=== PATIENT | male | born 1955 | race Caucasian/White ===

== ENCOUNTER 2017-07-24 19:05 | Emergency (ER) | payer OTHER ==
[~2017-07-24] VITALS: Ht 180.3 cm; Wt 96.2 kg
[~2017-07-24 19:05] MED LIST: NAPR500T4 PO; TRAM-42 PO
[2017-07-24] MEDS ORDERED: LACTATED RINGERS 1,000 ML IV ONE (19:28)
[2017-07-24] MEDS ORDERED: ACETAMINOPHEN 500 MG TAB (TYLENOL) PO ONE (19:30)
[2017-07-24] MEDS ORDERED: ONDANSETRON 4 MG/2 ML (SDV) Z0FRAN IVP ONE (19:30)
--- NOTE | 2017-07-24 19:36 | ED Fever ---
History of Present Illness General Chief Complaint: General Problems/Pain Stated Complaint: VOMITING, FLU, BACK PAIN Source: patient, spouse Exam Limitations: no limitations History of Present Illness Date Seen by Provider: Jul 24, 2017 Time Seen by Provider: 19:23 Initial Comments Patient presents to ER by private conveyance with a chief complaint of for the past 5 days he has experienced progressively worsening malaise, fevers subjectively, sweats, chills, body aches and pain in his low back as well as nausea and vomiting since yesterday. He's had no diarrhea. He's been laying home in bed sleeping and not drinking very much fluids and feels that he is dehydrated. He went to a different ER where he was seen and he says a stick stuck up his nose for 5 minutes and then they pulled out through the trash and told them he had a sinus infection and put him on amoxicillin which she started yesterday at noon. He says he is continuing to feel worse and having pain in his knees and his low back. He denies dysuria. He's had his appendix out twice apparently. He is not having any specific abdominal pain, chest pain, shortness of breath, cough, nasal congestion or pain, ear discharge. He says his throat is sore. Allergies and Home Medications Allergies Coded Allergies: No Known Drug Allergies (Unverified , 04/09/16) Home Medications Naproxen 500 Mg Tablet, 500 MG PO BID, #20 Prescribed by: HENRIK PATE on 04/09/162055 Tramadol HCl 50 Mg Tablet, 50 MG PO Q4H, #20 Prescribed by: HENRIK PATE on 04/09/162055 Constitutional: chills, diaphoresis, fever, malaise EENTM: No ear discharge, No hearing loss, No ear pain, No eye pain Respiratory: No cough, No phlegm, No short of breath, No wheezing Cardiovascular: No chest pain, No edema, No Hx of Intervention, No syncope, No vascular heart diseas Gastrointestinal: No abdominal pain, No constipation, No diarrhea, No heartburn , loss of appetite (poor fluid intake.), nausea, vomiting Genitourinary: decreased output, No discharge, No dysuria, No hematuria Musculoskeletal: back pain (lumbar), joint pain (bilateral knees ache) Skin: No pruritus, No rash, other (scraped his left elbow about a week ago) Psychiatric/Neurological: Denies Headache, Denies Numbness Past Zbicclp-Ifddgs-Fvulwt Hx Patient Social History Alcohol Use: Denies Use Recreational Drug Use: No Smoking Status: Never a Smoker Type Used: Smokeless Tobacco Recent Foreign Travel: No Contact w/Someone Who Travel: No Recent Hopitalizations: No Physical Abuse: No Sexual Abuse: No Mistreated: No Fear: No Immunizations Up To Date Tetanus Booster (TDap): Unknown Seasonal Allergies Seasonal Allergies: No Surgeries History of Surgeries: Yes (07/24-APPY (TWICE, PER )) Surgeries: Appendectomy, Tonsillectomy Respiratory History of Respiratory Disorde: No Cardiovascular History of Cardiac Disorders: No Neurological History of Neurological Disord: No Reproductive System Hx Reproductive Disorders: No Gastrointestinal History of Gastrointestinal Di: No Musculoskeletal History of Musculoskeletal Dis: No Endocrine History of Endocrine Disorders: No Cancer History of Cancer: No Psychosocial History of Psychiatric Problem: No Suicide Risk Score: 0 Integumentary History of Skin or Integumenta: No Blood Transfusions History of Blood Disorders: No Physical Exam Vital Signs Vital Signs - First Documented 07/24/17 19:19 Temp 98.3 Pulse 86 Resp 20 B/P (MAP) 138/102 (114) Pulse Ox 96 O2 Delivery Room Air Capillary Refill : General Appearance: WD/WN, mild distress Eyes: Bilateral Eye Normal Inspection, Bilateral Eye PERRL, Bilateral Eye EOMI HEENT: PERRL/EOMI, TMs normal, No scleral icterus (R), No photophobia, pharyngeal erythema, No tonsillar exudate Neck: non-tender, supple, normal inspection Respiratory: chest non-tender, lungs clear, no respiratory distress, no accessory muscle use, decreased breath sounds Cardiovascular: normal peripheral pulses, regular rate, rhythm, no edema Gastrointestinal: normal bowel sounds, non tender, soft Extremities: normal range of motion, normal inspection, no calf tenderness, normal capillary refill Neurologic/Psychiatric: alert, normal mood/affect, oriented x 3 Skin: normal color, warm/dry, other (old well-healed abrasion on his lateral left elbow without any erythema, induration or rash.) Progress/Results/Core Measures Suspected Sepsis SIRS Temperature: Pulse: Respiratory Rate: Laboratory Tests 07/24/17 19:55: White Blood Count 17.2H Blood Pressure / Mean: Laboratory Tests 07/24/17 19:55: Creatinine 0.86, Platelet Count 273, Total Bilirubin 0.7 Results/Orders Lab Results Laboratory Tests Test 07/24/17 19:36 07/24/17 19:55 Range/Units Urine Color YELLOW Urine Clarity CLEAR Urine pH 6 5-9 Urine Specific Parrott 1.015 L 1.016-1.022 Urine Protein NEGATIVE NEGATIVE Urine Glucose (UA) NEGATIVE NEGATIVE Urine Ketones NEGATIVE NEGATIVE Urine Nitrite NEGATIVE NEGATIVE Urine Bilirubin NEGATIVE NEGATIVE Urine Urobilinogen NORMAL NORMAL MG/DL Urine Leukocyte Esterase 1+ H NEGATIVE Urine RBC (Auto) NEGATIVE NEGATIVE Urine RBC NONE /HPF Urine WBC 0-2 /HPF Urine Crystals NONE /LPF Urine Bacteria NONE /HPF Urine Casts NONE /LPF Urine Mucus SMALL H /LPF Urine Culture Indicated NO Group A Streptococcus Screen NEGATIVE NEGATIVE White Blood Count 17.2 H 4.3-11.0 10^3/uL Red Blood Count 5.44 4.35-5.85 10^6/uL Hemoglobin 16.5 13.3-17.7 G/DL Hematocrit 46 40-54 % Mean Corpuscular Volume 85 80-99 FL Mean Corpuscular Hemoglobin 30 25-34 PG Mean Corpuscular Hemoglobin Concent 36 32-36 G/DL Red Cell Distribution Width 12.2 10.0-14.5 % Platelet Count 273 130-400 10^3/uL Mean Platelet Volume 9.5 7.4-10.4 FL Neutrophils (%) (Auto) 86 H 42-75 % Lymphocytes (%) (Auto) 4 L 12-44 % Monocytes (%) (Auto) 10 0-12 % Eosinophils (%) (Auto) 1 0-10 % Basophils (%) (Auto) 0 0-10 % Neutrophils # (Auto) 14.7 H 1.8-7.8 X 10^3 Lymphocytes # (Auto) 0.6 L 1.0-4.0 X 10^3 Monocytes # (Auto) 1.7 H 0.0-1.0 X 10^3 Eosinophils # (Auto) 0.2 0.0-0.3 10^3/uL Basophils # (Auto) 0.0 0.0-0.1 10^3/uL Neutrophils % (Manual) 64 % Lymphocytes % (Manual) 10 % Monocytes % (Manual) 4 % Eosinophils % (Manual) 1 % Basophils % (Manual) 0 % Band Neutrophils 21 % Blood Morphology Comment NORMAL Sodium Level 136 135-145 MMOL/L Potassium Level 4.0 3.6-5.0 MMOL/L Chloride Level 102 98-107 MMOL/L Carbon Dioxide Level 23 21-32 MMOL/L Anion Gap 11 5-14 MMOL/L Blood Urea Nitrogen 14 7-18 MG/DL Creatinine 0.86 0.60-1.30 MG/DL Estimat Glomerular Filtration Rate > 60 BUN/Creatinine Ratio 16 Glucose Level 139 H 70-105 MG/DL Calcium Level 8.7 8.5-10.1 MG/DL Magnesium Level 1.7 L 1.8-2.4 MG/DL Total Bilirubin 0.7 0.1-1.0 MG/DL Aspartate Amino Transf (AST/SGOT) 24 5-34 U/L Alanine Aminotransferase (ALT/SGPT) 33 0-55 U/L Alkaline Phosphatase 71 40-136 U/L Total Protein 6.6 6.4-8.2 GM/DL Albumin 3.9 3.2-4.5 GM/DL Micro Results Microbiology 07/24/17 Influenza Types A,B Antigen (RAMIRO) - Final, Complete My Orders Orders - BRYANNA BURNHAM Influenza A And B Antigens (07/24/17 19:17) Cbc With Automated Diff (07/24/17 19:28) Comprehensive Metabolic Panel (07/24/17 19:28) Magnesium (07/24/17 19:28) Rapid Strep A Screen (07/24/17 19:28) Ua Culture If Indicated (07/24/17 19:28) Chest Pa/Lat (2 View) (07/24/17 19:28) Saline Lock/Iv-Start (07/24/17 19:28) Lactated Ringers (Lr 1000 Ml Iv Solution (07/24/17 19:28) Ondansetron Injection (Zofran Injectio (07/24/17 19:30) Acetaminophen Tablet (Tylenol Tablet) (07/24/17 19:30) Manual Differential (07/24/17 19:55) Ct Abdomen/Pelvis W (07/24/17 21:00) Iohexol Injection (Omnipaque 350 Mg/Ml 1 (07/24/17 21:15) Ns (Ivpb) (Sodium Chloride 0.9% Ivpb Bag (07/24/17 21:15) Medications Given in ED Current Medications Medications Dose Ordered Sig/Kelly Route Start Time Stop Time Status Last Admin Dose Admin Acetaminophen 1,000 mg ONCE ONCE PO 07/24/17 19:30 07/24/17 19:31 DC 07/24/17 19:53 1,000 MG Iohexol 100 ml ONCE ONCE IV 07/24/17 21:15 07/24/17 21:16 UNV 07/24/17 21:26 100 ML Lactated Ringer's 1,000 ml @ 0 mls/hr Q0M ONCE IV 07/24/17 19:28 07/24/17 19:30 DC 07/24/17 19:58 1,000 MLS/HR Ondansetron HCl 4 mg ONCE ONCE IVP 07/24/17 19:30 07/24/17 19:31 DC 07/24/17 19:58 4 MG Sodium Chloride 100 ml ONCE ONCE IV 07/24/17 21:15 07/24/17 21:16 UNV 07/24/17 21:26 100 ML Vital Signs/I&O Vital Sign - Last 12Hours 07/24/17 19:19 Temp 98.3 Pulse 86 Resp 20 B/P (MAP) 138/102 (114) Pulse Ox 96 O2 Delivery Room Air Capillary Refill : Progress Note : Time: 19:36 Progress Note Patient's having myalgias and fever and using naproxen which has masses fever presently. Seems like he has a viral illness such as influenza but because of his age were going to check urine and blood. I don't see anything overtly explain his symptoms we may consider imaging his lower abdomen given his severity of back pain. We will give him some Zofran, Tylenol and IV fluids help rehydrate him. Diagnostic Imaging Diagonstic Imaging: Xray Plain Films/CT/US/NM/MRI: chest (2v) Comments NAME: HO VIZCARRA [facility] REC#: [id number] PHYSICIAN: BRYANNA BURNHAM MD CC: ANKUR GARCIA DO; BRYANNA BURNHAM Page 1 of 1 RADIOLOGY REPORT VIA [facility], [facility]. [place], [place] CC: ANKUR GARCIA DO; BRYANNA BURNHAM Page 1 of 1 RADIOLOGY REPORT NAME: HO VIZCARRA [facility] REC#: [id number] PT STATUS: REG ER : 1955 PHYSICIAN: BRYANNA BURNHAM MD ADMIT DATE: 07/24/17/ER Signed Date of Exam: 07/24/17 CHEST PA/LAT (2 VIEW) INDICATION: Nausea, vomiting, cough and back pain x6 days.. TECHNIQUE: Two view chest 8:29 PM CORRELATION STUDY: None FINDINGS: The heart size, mediastinal configuration and pulmonary vasculature are within normal limits. The lungs are clear with no consolidating infiltrate. There is no significant pleural effusion or pneumothorax. Visualized osseous structures are unremarkable. IMPRESSION: 1. No radiographic evidence for acute abnormality of the chest. Dictated by: Dictated on workstation # [id number] Dict: 07/24/172033 Trans: 07/24/172034 Interpreted by: ANKUR GARCIA DO Electronically signed by: ANKUR GARCIA DO 07/24/172034 Reviewed: Reviewed by Mi Diagonstic Imaging: CT Plain Films/CT/US/NM/MRI: abdomen, pelvis (w/c) Comments VIA [place], [place] NAME: HO VIZCARRA [facility] REC#: [id number] PT STATUS: REG ER : 1955 PHYSICIAN: BRYANNA BURNHAM MD ADMIT DATE: 07/24/17/ER Draft Date of Exam:07/24/17 CT ABDOMEN/PELVIS W PROCEDURE: CT abdomen and pelvis with contrast. TECHNIQUE: Multiple contiguous axial images were obtained through the abdomen and pelvis after administration of intravenous contrast. INDICATION: Generalized abdominal pain, achiness. Onset low abdominal and back pain x6 days. CORRELATION STUDY: None. FINDINGS: LOWER THORAX: Clear. LIVER: Unremarkable. GALLBLADDER: Slightly distended but otherwise unremarkable. SPLEEN: Unremarkable. PANCREAS: Unremarkable. ADRENAL GLANDS: Unremarkable. KIDNEYS: Normal configuration. No calcification or obstruction. ABDOMINAL AORTA: Unremarkable, nonaneurysmal. GASTROINTESTINAL TRACT: Stomach relatively decompressed. There are a few slightly thickened loops of small bowel particularly in the central aspect. No abnormally dilated loops of bowel or findings to suggest obstruction. No transition point. There is mild/moderate severity fecal retention present. The appendix is not localized. No focal pericecal inflammatory changes. No abdominal ascites or free air. Few prominent mesenteric lymph nodes are noted. URINARY BLADDER: Unremarkable. REPRODUCTIVE: Prostate gland very mildly prominent. OSSEOUS STRUCTURES: No acute abnormality. IMPRESSION: 1. Prominent somewhat fluid distended thickened loops of small bowel in the central aspect of the abdomen suspect for nonspecific enteritis. No findings to suggest high degree of bowel obstruction. 2. Gallbladder slightly distended but otherwise unremarkable. Correlation for symptoms. Dictated on workstation # [id number] Dict: 07/24/172151 Trans: 07/24/172201 [facility] [id number] Interpreted by: ANKUR GARCIA DO Electronically signed by: Reviewed: Reviewed by Me Departure Impression Impression: Primary Impression: Enteritis Disposition: HOME, SELF-CARE Condition: Improved Departure-Patient Inst. Decision time for Depature: 22:21 Referrals: KALPANA FRANK MD (PCP/Family) Primary Care Physician Patient Instructions: Viral Gastroenteritis, Adult (DC) Add. Discharge Instructions: Drink plenty of fluids. Use Tylenol 1000 g every 6 hours as needed for pain. Use either Naprosyn 2 capsules twice a day or ibuprofen 4 tablets 3 times a day in addition for pain as needed. If your symptoms last for more than 3-5 days or not getting better follow-up with your primary care physician or return to the ER. He denies fevers, intractable nausea vomiting or bloody diarrhea. All discharge instructions reviewed with patient and/or family. Voiced understanding. Work/School Note: Work Release Form Date Seen in the Emergency Department: Jul 24, 2017 Return to Work: Jul 26, 2017 Restrictions: No Restrictions Copy Copies To 1: KALPANA FRANK MD, TITUS J Jul 24, 2017 19:36
[2017-07-24 19:49] LABS: BILIRUBIN,URINE NEGATIVE (NEGATIVE); CLARITY,URINE CLEAR; COLOR,URINE YELLOW; GLUCOSE, URINE (UA) NEGATIVE (NEGATIVE); KETONES,URINE NEGATIVE (NEGATIVE); LEUKOCYTE ESTERASE ,URINE 1+ (NEGATIVE); NITRITE,URINE NEGATIVE (NEGATIVE); PH,URINE 6 (5-9); PROTEIN,URINE NEGATIVE (NEGATIVE); UROBILINOGEN,URINE NORMAL (NORMAL)
[2017-07-24 20:09] LABS: BASOPHILS % (AUTO) 0 % (0-10); EOSINOPHILS # (AUTO) 0.2 10^3/uL (0.0-0.3); EOSINOPHILS % (AUTO) 1 % (0-10); HEMATOCRIT 46 % (40-54); HEMOGLOBIN 16.5 G/DL (13.3-17.7); LYMPHOCYTES # (AUTO) 0.6 X 10^3 (1.0-4.0); LYMPHOCYTES % (AUTO) 4 % (12-44); MEAN CORPUSCULAR HEMOGLOBIN 30 PG (25-34); MEAN CORPUSCULAR HGB CONC 36 G/DL (32-36); MEAN CORPUSCULAR VOLUME 85 FL (80-99); MEAN PLATELET VOLUME 9.5 FL (7.4-10.4); MONOCYTES # (AUTO) 1.7 X 10^3 (0.0-1.0); MONOCYTES % (AUTO) 10 % (0-12); NEUTROPHILS # (AUTO) 14.7 X 10^3 (1.8-7.8); NEUTROPHILS % (AUTO) 86 % (42-75); PLATELET COUNT 273 10^3/uL (130-400); RED BLOOD COUNT 5.44 10^6/uL (4.35-5.85); RED CELL DISTRIBUTION WIDTH 12.2 % (10.0-14.5); WHITE BLOOD COUNT 17.2 10^3/uL (4.3-11.0)
[2017-07-24 20:09] LABS: WBC,URINE 0-2 /HPF
[2017-07-24 20:28] LABS: ALANINE AMINOTRANSFERASE 33 U/L (0-55); ALBUMIN 3.9 GM/DL (3.2-4.5); ALKALINE PHOSPHATASE 71 U/L (40-136); BILIRUBIN,TOTAL 0.7 MG/DL (0.1-1.0); BUN/CREATININE RATIO 16; CALCIUM 8.7 MG/DL (8.5-10.1); CARBON DIOXIDE 23 MMOL/L (21-32); CHLORIDE 102 MMOL/L (98-107); CREATININE SERUM 0.86 MG/DL (0.60-1.30); GFR ESTIMATED > 60; GLUCOSE 139 MG/DL (70-105); MAGNESIUM 1.7 MG/DL (1.8-2.4); SODIUM 136 MMOL/L (135-145); TOTAL PROTEIN 6.6 GM/DL (6.4-8.2)
--- NOTE | 2017-07-24 20:38 | Diagnostic Imaging Report ---
INDICATION: Nausea, vomiting, cough and back pain x6 days.. TECHNIQUE: Two view chest 8:29 PM CORRELATION STUDY: None FINDINGS: The heart size, mediastinal configuration and pulmonary vasculature are within normal limits. The lungs are clear with no consolidating infiltrate. There is no significant pleural effusion or pneumothorax. Visualized osseous structures are unremarkable. IMPRESSION: 1. No radiographic evidence for acute abnormality of the chest. Dictated by: Dictated on workstation # [id number]
[2017-07-24 20:42] LABS: BAND NEUTROPHILS 21 %; BASOPHILS % (MANUAL) 0 %; EOSINOPHILS % (MANUAL) 1 %; LYMPHOCYTES % (MANUAL) 10 %; MONOCYTES % (MANUAL) 4 %; NEUTROPHILS % (MANUAL) 64 %; RBC MORPH NORMAL
[2017-07-24] MEDS ORDERED: NS 100 ML (IVPB) BAG IV ONE (21:15)
[2017-07-24] MEDS ORDERED: IOHEXOL 350 MG/ML 100 ML (OMNIPAQUE 350) VIAL IV ONE (21:15)
--- NOTE | 2017-07-24 22:03 | Diagnostic Imaging Report ---
PROCEDURE: CT abdomen and pelvis with contrast. TECHNIQUE: Multiple contiguous axial images were obtained through the abdomen and pelvis after administration of intravenous contrast. INDICATION: Generalized abdominal pain, achiness. Onset low abdominal and back pain x6 days. CORRELATION STUDY: None. FINDINGS: LOWER THORAX: Clear. LIVER: Unremarkable. GALLBLADDER: Slightly distended but otherwise unremarkable. SPLEEN: Unremarkable. PANCREAS: Unremarkable. ADRENAL GLANDS: Unremarkable. KIDNEYS: Normal configuration. No calcification or obstruction. ABDOMINAL AORTA: Unremarkable, nonaneurysmal. GASTROINTESTINAL TRACT: Stomach relatively decompressed. There are a few slightly thickened loops of small bowel particularly in the central aspect. No abnormally dilated loops of bowel or findings to suggest obstruction. No transition point. There is mild/moderate severity fecal retention present. The appendix is not localized. No focal pericecal inflammatory changes. No abdominal ascites or free air. Few prominent mesenteric lymph nodes are noted. URINARY BLADDER: Unremarkable. REPRODUCTIVE: Prostate gland very mildly prominent. OSSEOUS STRUCTURES: No acute abnormality. IMPRESSION: 1. Prominent somewhat fluid distended thickened loops of small bowel in the central aspect of the abdomen suspect for nonspecific enteritis. No findings to suggest high degree of bowel obstruction. 2. Gallbladder slightly distended but otherwise unremarkable. Correlation for symptoms. Dictated by: Dictated on workstation # [id number]
[2017-07-24 22:32] VITALS: BP 127/95
== END 2017-07-24 22:35 | disposition home or self-care (01) ==
LOC: EDUNIT# 19:05 → ER 19:06
DX: K52.9 Noninfective gastroenteritis and colitis, unspecified (principal); Z90.49 Acquired absence of other specified parts of digestive tract; Z90.89 Acquired absence of other organs
CPT/HCPCS: 36415; 71046; 74177; 80053; 81000; 83735; 85007; 85027; 87430; 87804

== ENCOUNTER 2018-12-04 13:13 | Outpatient (RCR) | payer OTHER ==
[~2018-12-04 13:13] MED LIST changes: +NAPR-915 PO; -NAPR500T4 PO
== END 2018-12-10 09:08 | disposition home or self-care (01) ==
PROVIDERS: ATTEND Orthopaedic Surgery
DX: M17.11 Unilateral primary osteoarthritis, right knee (principal)